=== PATIENT | female | born 1960 | race Caucasian/White ===

== ENCOUNTER 2020-12-06 01:58 | Emergency (ER) | payer MEDICAID ==
[~2020-12-06] VITALS: Ht 152.4 cm; Wt 7.8 kg
[2020-12-06] MEDS ORDERED: ALBUTEROL SULF 2.5 MG/0.5ML(0.5%) NEB SOLN NEB ONE (02:00)
[2020-12-06 03:02] LABS: Alanine Aminotransferase 64 U/L (13-56); Albumin 3.9 g/dL (3.4-5.0); Anion Gap 9 (5-15); Aspartate Aminotransferase 73 U/L (15-37); BUN/Creatinine Ratio 19.2; Blood Urea Nitrogen 20 mg/dL (7-18); Carbon Dioxide 27 mmol/L (21-32); Chloride 106 mmol/L (98-107); GFR African American 70 mL/min; GFR Non-African American 58 mL/min; Glucose 127 mg/dL (74-106); Potassium 3.8 mmol/L (3.5-5.1); Sodium 142 mmol/L (136-145)
[2020-12-06 03:04] LABS: INR 0.98 (0.9-1.15); Partial Thromboplastin Time 24.8 sec (23.6-33.0)
[2020-12-06 03:07] LABS: Alkaline Phosphatase 93 U/L (45-117); Bilirubin, Total 0.4 mg/dL (0.2-1.0); Total Protein 7.9 g/dL (6.4-8.2)
[2020-12-06 03:09] LABS: Basophils # (auto) 0.1 10 ^3/uL (0-0.2); Basophils % (auto) 1.4 % (0.0-2.0); Eosinophils # (auto) 0.1 10 ^3/uL (0-0.8); Eosinophils % (auto) 0.8 % (0.0-7.0); Hematocrit 44.5 % (36.0-46.0); Lymphocytes % (auto) 18.5 % (10.0-50.0); Mean Corpuscular Hemoglobin 32.4 pg (28.0-32.0); Mean Corpuscular Hgb Conc. 33.7 g/dL (32.0-36.0); Monocytes # (auto) 0.6 10 ^3/uL (0-1.3); Monocytes % (auto) 5.3 % (0.0-12.0); Neutrophils # (auto) 8.1 10 ^3/uL (1.6-8.6); Nucleated Red Blood Cells % 0.1 %; Red Blood Cells 4.63 10^6/uL (4.0-5.20); Red Cell Distribution Width 14.1 % (11.8-14.3); White Blood Cell 10.9 10^3/uL (4.4-10.8)
[2020-12-06] MEDS ORDERED: IOHEXOL 350 MG/ML 100ML IJ ONE (05:00)
[2020-12-06 08:06] VITALS: BP 107/41
== END 2020-12-06 09:31 | disposition home or self-care (01) ==
LOC: ER 01:58 → EDBD 01:58 → ER 09:31
DX: J43.8 Other emphysema (principal); I25.10 Atherosclerotic heart disease of native coronary artery without angina pectoris; R00.0 Tachycardia, unspecified; Z87.891 Personal history of nicotine dependence; Z20.822 Contact with and (suspected) exposure to COVID-19
CPT/HCPCS: 36415; 71275; 80053; 83605; 83880; 84484; 85025; 85379; 85610; 85730; 87040; 87426; 93005; 94640; 99285; Q9967